=== PATIENT | female | born 1990 | race Caucasian/White ===

== ENCOUNTER 2020-10-24 14:07 | Emergency (ER) | payer MEDICAID ==
[~2020-10-24] VITALS: Ht 162.6 cm; Wt 56.8 kg
[~2020-10-24 14:07] MED LIST: IBUP-1985 PO
[2020-10-24] MEDS ORDERED: naproxen 500mg tablet PO ONE (15:50)
[2020-10-24] MEDS ORDERED: HYDROcodone/acetaminophen 5mg/325mg tablet PO ONE (15:50)
[2020-10-24] MEDS ORDERED: dicloxacillin 500 MG capsule PO SCH (15:50)
[2020-10-24] MEDS ORDERED: CIPR10DR RIGHT EAR (15:53)
[2020-10-24] MEDS ORDERED: DYN250C PO (15:53)
[2020-10-24] MEDS ORDERED: Cipro HC otic suspension 10ML bottle RIGHT EAR SCH (16:02)
[2020-10-24 16:40] VITALS: BP 116/71
== END 2020-10-24 16:36 | disposition home or self-care (01) ==
LOC: ER 14:07
DX: H60.91 Unspecified otitis externa, right ear (principal); R50.9 Fever, unspecified; F17.200 Nicotine dependence, unspecified, uncomplicated; Z79.2 Long term (current) use of antibiotics; Z79.899 Other long term (current) drug therapy
CPT/HCPCS: 99283; 99284

== ENCOUNTER 2023-05-16 06:35 | Emergency (ER) | payer MEDICAID ==
[~2023-05-16] VITALS: Ht 162.6 cm; Wt 64.1 kg
[2023-05-16 07:18] VITALS: BP 125/90; PULSE 69; RESP 20; TEMP 98.4; O2SAT 100
== END 2023-05-16 11:13 | disposition home or self-care (01) ==
LOC: ER 06:36
DX: U07.1 COVID-19 (principal); Z79.899 Other long term (current) drug therapy
CPT/HCPCS: 36415; 87811; 99283